=== PATIENT | male | born 1955 | race African-American/Black ===

== ENCOUNTER 2019-07-16 17:45 | Inpatient (IN) | payer OTHER ==
[~2019-07-16] VITALS: Ht 182.9 cm; Wt 54.9 kg
[2019-07-16 18:37] LABS: BASOPHILS % 1.2 % (0.0-2.0); EOSINOPHILS % 0.2 % (0.0-5.0); HEMATOCRIT. 43.5 % (42.0-52.0); HEMOGLOBIN. 13.6 g/dL (14.0-18.0); LYMPHOCYTES % 12.3 % (20.0-50.0); MEAN CORPUSCULAR HEMOGLOBIN 24.2 pg (28.0-32.0); MEAN CORPUSCULAR VOLUME 77.7 fL (80.0-94.0); MEAN PLATELET VOLUME 9.2 fl (7.4-10.4); MONOCYTES % 9.1 % (2.0-8.0); NEUTROPHILS % 77.2 % (40.0-76.0); PLATELET 201 x1000/uL (130-400); RED CELL DISTRIBUTION WIDTH 18.4 % (11.6-14.6)
[2019-07-16 18:40] LABS: CHLORIDE 92 mEq/L (98-107)
[2019-07-16 18:46] LABS: ETHANOL BLOOD < 10 mg/dL
[2019-07-16] MEDS ORDERED: METHYLPREDNISOLONE SOD SUCC 125 MG/2 ML VIAL IV ONE (19:15)
[2019-07-16] MEDS ORDERED: ALBUTEROL (0.083%) 2.5MG/3ML NEB HHN ONE (19:15)
[2019-07-16 20:58] LABS: BG BASE EXCESS 14.4 mmol/L (-2.0-2.0); BG CARBOXYHEMOGLOBIN 6.3 % (0.5-1.5); BG DEOXYHEMOGLOBIN 11.9 % (0.0-5.0); BG FRACTION INSPIRED OXYGEN 36; BG HCO3 ACT 46.2 mmol/L (22.0-26.0); BG METHEMOGLOBIN 0.3 % (0.0-1.5); BG OXYGEN SATURATION 87.3 % (92.0-98.5); BG OXYHEMOGLOBIN 81.5 % (94.0-97.0); BG PCO2 103.9 mmHg (35.0-45.0); BG PH 7.266 (7.350-7.450); BG PO2 54.6 mmHg (75.0-100.0); BG SAMPLE SITE RIGHT RADIAL; BG TOTAL HEMOGLOBIN 13.5 g/dL (12.0-18.0); BG VENT MODE NASAL CANNULA
[2019-07-16 23:39] LABS: BG BASE EXCESS 15.6 mmol/L (-2.0-2.0); BG CARBOXYHEMOGLOBIN 5.3 % (0.5-1.5); BG DEOXYHEMOGLOBIN 6.5 % (0.0-5.0); BG FRACTION INSPIRED OXYGEN 40; BG HCO3 ACT 47.4 mmol/L (22.0-26.0); BG METHEMOGLOBIN 0.1 % (0.0-1.5); BG OXYGEN SATURATION 93.1 % (92.0-98.5); BG OXYHEMOGLOBIN 88.1 % (94.0-97.0); BG PCO2 102.8 mmHg (35.0-45.0); BG PH 7.282 (7.350-7.450); BG PO2 67.5 mmHg (75.0-100.0); BG SAMPLE SITE RIGHT BRACHIAL; BG TOTAL HEMOGLOBIN 13.9 g/dL (12.0-18.0); BG VENT MODE NASAL CANNULA
[2019-07-17] VITALS (11 sets, daily range): BP systolic 81–116; BP diastolic 36–66
[2019-07-17] MEDS ORDERED: AZITHROMYCIN 500 MG in DEXT 5% WATER 250 ML IV ONE ×2
[2019-07-17] MEDS ORDERED: CEFTRIAXONE 1 G PREMIX 50 ML IV ONE
[2019-07-17] MEDS ORDERED: CLONIDINE 0.1MG TABLET PO PRN (00:30)
[2019-07-17] MEDS ORDERED: HYDROCODONE/ACETAMINOPHEN 10/325MG TABLET PO PRN (00:30)
[2019-07-17] MEDS ORDERED: MORPHINE SULFATE 2 MG/ML CPJ (NOT FOR IM USE) IV PRN (00:30)
[2019-07-17] MEDS ORDERED: ENOXAPARIN 40MG/0.4ML SYR SUBCUT SCH (00:30)
[2019-07-17] MEDS ORDERED: DOCUSATE SODIUM 100MG CAPSULE PO PRN (00:30)
[2019-07-17] MEDS ORDERED: ONDANSETRON HCL 4MG/2ML INJ IV PRN (00:30)
[2019-07-17] MEDS ORDERED: MAGNESIUM/ALUMINUM HYDROXIDE/SIMETHICONE 30ML UDC PO PRN (00:30)
[2019-07-17] MEDS ORDERED: DIPHENHYDRAMINE 50MG/ML VIAL IV PRN (00:30)
[2019-07-17] MEDS ORDERED: LORAZEPAM 2MG/ML CPJ IV PRN (00:30)
[2019-07-17] MEDS ORDERED: CEFTRIAXONE 1 G PREMIX 50 ML IV SCH ×2 (00:30→15:00)
[2019-07-17] MEDS ORDERED: AZITHROMYCIN 500 MG in DEXT 5% WATER 250 ML IV SCH (00:30)
[2019-07-17] MEDS ORDERED: ACETAMINOPHEN 325MG TABLET PO PRN (00:30)
[2019-07-17] MEDS ORDERED: GUAIFENESIN 200MG/10ML SUGAR FREE UDC PO PRN (00:30)
[2019-07-17] MEDS ORDERED: IPRATROPIUM/ALBUTEROL 0.5-3(2.5)MG/3ML NEB HHN PRN (00:30)
[2019-07-17] MEDS: SODIUM CHLORIDE 0.9% INJ 3ML FLUSH IVF SCH ×3 (07:24→22:28)
[2019-07-17 12:18] LABS: BG BASE EXCESS 18.6 mmol/L (-2.0-2.0); BG CARBOXYHEMOGLOBIN 2.3 % (0.5-1.5); BG DEOXYHEMOGLOBIN 3.9 % (0.0-5.0); BG FRACTION INSPIRED OXYGEN 40; BG HCO3 ACT 53.8 mmol/L (22.0-26.0); BG METHEMOGLOBIN 0.2 % (0.0-1.5); BG OXYHEMOGLOBIN 93.6 % (94.0-97.0); BG PCO2 145.5 mmHg (35.0-45.0); BG PH 7.186 (7.350-7.450); BG SAMPLE SITE RIGHT RADIAL; BG TOTAL HEMOGLOBIN 13.9 g/dL (12.0-18.0); BG VENT MODE NASAL CANNULA
[2019-07-17] MEDS ORDERED: ETOMIDATE 2MG/ML 10ML VIAL IV ONE ×2 (12:30)
[2019-07-17] MEDS ORDERED: PROPOFOL 10MG/ML 100ML 100 ML IV ONE (12:30)
[2019-07-17] MEDS ORDERED: SUCCINYLCHOLINE CHLORIDE 200MG/10ML IV ONE ×2 (12:30)
[2019-07-17 13:21] LABS: BG BASE EXCESS 15.3 mmol/L (-2.0-2.0); BG CARBOXYHEMOGLOBIN 2.2 % (0.5-1.5); BG DEOXYHEMOGLOBIN 0.4 % (0.0-5.0); BG FRACTION INSPIRED OXYGEN 75; BG HCO3 ACT 45.1 mmol/L (22.0-26.0); BG METHEMOGLOBIN 0.2 % (0.0-1.5); BG OXYGEN SATURATION 99.6 % (92.0-98.5); BG OXYHEMOGLOBIN 97.2 % (94.0-97.0); BG PCO2 82.6 mmHg (35.0-45.0); BG PH 7.355 (7.350-7.450); BG PO2 302.8 mmHg (75.0-100.0); BG SAMPLE SITE RIGHT BRACHIAL; BG TIDAL VOLUME(mL) 450 mL; BG VENT MODE VENT - A/C; BG VENT RATE 22 set
[2019-07-17] MEDS ORDERED: PROPOFOL 10MG/ML 100ML 100 ML IV PRN (14:30)
[2019-07-17] MEDS ORDERED: ALBUTEROL 6.7GM HFA INHALER ORI SCH (14:30)
[2019-07-17] MEDS ORDERED: METHYLPREDNISOLONE SOD SUCC 40 MG/ML VIAL IV SCH (14:30)
[2019-07-17] MEDS ORDERED: FENTANYL CITRATE/PF 1,000 MCG in SODIUM CHLORIDE 0.9% 80 ML IV PRN ×2 (14:45→16:15)
[2019-07-17] MEDS ORDERED: MIDAZOLAM HCL 100 MG in DEXT 5% WATER 80 ML IV PRN ×2 (15:45→16:15)
[2019-07-17] MEDS ORDERED: NOREPINEPHRINE 32 MG in DEXT 5% WATER 468 ML IV PRN ×2 (15:45→16:15)
[2019-07-17] MEDS ORDERED: MIDAZOLAM HCL 50 MG in DEXTROSE 5% WATER 40 ML IV ONE (20:45)
[2019-07-17] MEDS: METHYLPREDNISOLONE SOD SUCC 40 MG/ML VIAL IV SCH (22:41)
[2019-07-17] MEDS: AZITHROMYCIN 500MG in DEXTROSE 5% WATER 250ML IV SCH (23:21)
[2019-07-17] MEDS: CEFTRIAXONE 1 G PREMIX 50 ML IV SCH (23:21)
[2019-07-17] MEDS: ENOXAPARIN 40MG/0.4ML SYR SUBCUT SCH (23:24)
[2019-07-18] VITALS (99 sets, daily range): BP systolic 80–152; BP diastolic 35–96
[2019-07-18] MEDS ORDERED: AZITHROMYCIN 500MG in DEXTROSE 5% WATER 250ML IV SCH ×2
[2019-07-18] MEDS ORDERED: ALBUTEROL (0.083%) 2.5MG/3ML NEB HHN SCH
[2019-07-18] MEDS ORDERED: HYDRALAZINE 20MG/ML VIAL IV PRN
[2019-07-18] MEDS ORDERED: CEFTRIAXONE 1 G PREMIX 50 ML IV SCH
[2019-07-18] MEDS: NOREPINEPHRINE 32 MG in DEXT 5% WATER 468 ML IV PRN (03:00)
[2019-07-18] MEDS: METHYLPREDNISOLONE SOD SUCC 40 MG/ML VIAL IV SCH ×3 (05:22→21:19)
[2019-07-18] MEDS: MIDAZOLAM HCL 100 MG in DEXT 5% WATER 80 ML IV PRN ×2 (05:38→15:38)
[2019-07-18 05:40] LABS: HEMATOCRIT. 39.4 % (42.0-52.0); HEMOGLOBIN. 12.3 g/dL (14.0-18.0); MEAN CORPUSCULAR HEMOGLOBIN 24.1 pg (28.0-32.0); MEAN CORPUSCULAR VOLUME 76.9 fL (80.0-94.0); MEAN PLATELET VOLUME 9.4 fl (7.4-10.4); PLATELET 219 x1000/uL (130-400); RED BLOOD CELL COUNT 5.12 mill/uL (4.7-6.1); RED CELL DISTRIBUTION WIDTH 17.8 % (11.6-14.6)
[2019-07-18 05:45] LABS: CHLORIDE 92 mEq/L (98-107)
[2019-07-18] MEDS: SODIUM CHLORIDE 0.9% INJ 3ML FLUSH IVF SCH ×3 (06:00→21:20)
[2019-07-18 07:46] LABS: PLATELET ESTIMATE NORMAL
[2019-07-18 08:56] LABS: BG BASE EXCESS 11.9 mmol/L (-2.0-2.0); BG CARBOXYHEMOGLOBIN 1.3 % (0.5-1.5); BG DEOXYHEMOGLOBIN 2.6 % (0.0-5.0); BG FRACTION INSPIRED OXYGEN 40; BG HCO3 ACT 36.2 mmol/L (22.0-26.0); BG OXYGEN SATURATION 97.4 % (92.0-98.5); BG OXYHEMOGLOBIN 96.1 % (94.0-97.0); BG PCO2 45.4 mmHg (35.0-45.0); BG PO2 85.2 mmHg (75.0-100.0); BG SAMPLE SITE RIGHT BRACHIAL; BG TIDAL VOLUME(mL) 450 mL; BG VENT MODE VENT- PRVC; BG VENT RATE 18 set
[2019-07-18] MEDS: PANTOPRAZOLE SODIUM 40 MG/VIAL IV SCH (09:52)
[2019-07-18] MEDS ORDERED: IPRATROPIUM/ALBUTEROL 0.5-3(2.5)MG/3ML NEB HHN PRN (13:15)
[2019-07-18] MEDS: FENTANYL CITRATE/PF 1,000 MCG in SODIUM CHLORIDE 0.9% 80 ML IV PRN (13:48)
[2019-07-18 16:32] LABS: CLARITY URINE CLEAR (CLEAR); COLOR URINE YELLOW (YELLOW); KETONES URINE TRACE (NEGATIVE); LEUKOCYTE ESTERASE URINE NEGATIVE (NEGATIVE); NITRITE URINE NEGATIVE (NEGATIVE); OCCULT BLOOD URINE 1+ (NEGATIVE); PH URINE >=9.0 (4.5-8.0); PROTEIN URINE 1+ (NEGATIVE); SPECIFIC GRAVITY URINE 1.012 (1.005-1.030); UROBILINOGEN URINE 0.2 E.U./dL (0.2-1.0)
[2019-07-18 17:06] LABS: *AMPHETAMINES SCREEN URINE NEGATIVE (NEGATIVE); *BARBITURATES SCREEN URINE NEGATIVE (NEGATIVE); *BENZODIAZEPINES SCREEN URINE PRESUMTIVE POSITIVE (NEGATIVE); *COCAINE SCREEN URINE NEGATIVE (NEGATIVE); METHADONE URINE SCREEN NEGATIVE (NEGATIVE); OPIATES URINE SCREEN NEGATIVE (NEGATIVE)
[2019-07-18 17:07] LABS: CANNABINOID URINE SCREEN NEGATIVE (NEGATIVE); PHENCYCLIDINE URINE SCREEN NEGATIVE (NEGATIVE)
[2019-07-18] MEDS: IPRATROPIUM/ALBUTEROL 0.5-3(2.5)MG/3ML NEB HHN SCH (19:50)
[2019-07-18] MEDS: AZITHROMYCIN 500MG in DEXTROSE 5% WATER 250ML IV SCH (21:19)
[2019-07-18] MEDS: CEFTRIAXONE 1 G PREMIX 50 ML IV SCH (21:19)
[2019-07-18] MEDS: ENOXAPARIN 40MG/0.4ML SYR SUBCUT SCH (21:20)
[2019-07-19] VITALS (96 sets, daily range): BP systolic 74–185; BP diastolic 50–105
[2019-07-19] MEDS: IPRATROPIUM/ALBUTEROL 0.5-3(2.5)MG/3ML NEB HHN SCH ×6 (00:10→21:08)
[2019-07-19] MEDS: MIDAZOLAM HCL 100 MG in DEXT 5% WATER 80 ML IV PRN ×3 (02:31→23:53)
[2019-07-19] MEDS: SODIUM CHLORIDE 0.9% INJ 3ML FLUSH IVF SCH ×3 (06:00→22:59)
[2019-07-19 06:29] LABS: BASOPHILS % 0.3 % (0.0-2.0); HEMATOCRIT. 41.9 % (42.0-52.0); HEMOGLOBIN. 13.2 g/dL (14.0-18.0); LYMPHOCYTES % 7.1 % (20.0-50.0); MEAN CORPUSCULAR HEMOGLOBIN 23.8 pg (28.0-32.0); MEAN CORPUSCULAR VOLUME 75.6 fL (80.0-94.0); MEAN PLATELET VOLUME 9.4 fl (7.4-10.4); MONOCYTES % 5.1 % (2.0-8.0); NEUTROPHILS % 87.5 % (40.0-76.0); PLATELET 243 x1000/uL (130-400); RED BLOOD CELL COUNT 5.54 mill/uL (4.7-6.1); RED CELL DISTRIBUTION WIDTH 17.5 % (11.6-14.6)
[2019-07-19 06:32] LABS: INR 1.1; PARTIAL THROMBOPLASTIN TIME 42.4 sec (23.4-31.0); PROTHROMBIN TIME 11.5 sec (9.6-11.0)
[2019-07-19 06:33] LABS: CHLORIDE 94 mEq/L (98-107)
[2019-07-19 06:37] LABS: PHOSPHORUS 2.8 mg/dL (2.5-4.9)
[2019-07-19] MEDS: METHYLPREDNISOLONE SOD SUCC 40 MG/ML VIAL IV SCH ×3 (07:45→23:03)
[2019-07-19 08:44] LABS: BG BASE EXCESS 10.6 mmol/L (-2.0-2.0); BG CARBOXYHEMOGLOBIN 1.3 % (0.5-1.5); BG DEOXYHEMOGLOBIN 8.7 % (0.0-5.0); BG HCO3 ACT 37.9 mmol/L (22.0-26.0); BG METHEMOGLOBIN 0.2 % (0.0-1.5); BG OXYGEN SATURATION 91.2 % (92.0-98.5); BG OXYHEMOGLOBIN 89.8 % (94.0-97.0); BG PCO2 62.5 mmHg (35.0-45.0); BG PH 7.401 (7.350-7.450); BG PO2 61.8 mmHg (75.0-100.0); BG SAMPLE SITE RIGHT RADIAL; BG TIDAL VOLUME(mL) 450 mL; BG TOTAL HEMOGLOBIN 13.9 g/dL (12.0-18.0); BG VENT MODE VENT - A/C; BG VENT RATE 14 set
[2019-07-19] MEDS: FENTANYL CITRATE/PF 1,000 MCG in SODIUM CHLORIDE 0.9% 80 ML IV PRN ×2 (08:51→17:23)
[2019-07-19] MEDS: PANTOPRAZOLE SODIUM 40 MG/VIAL IV SCH (09:39)
[2019-07-19] MEDS: ZINC SULFATE 220 MG ( 50 ) CAPSULE PO SCH (09:39)
[2019-07-19] MEDS: ASCORBIC ACID 500 MG TABLET PO SCH (09:40)
[2019-07-19] MEDS: FOLIC ACID 1MG TABLET PO SCH (09:40)
[2019-07-19] MEDS: THIAMINE HCL 100MG TABLET PO SCH (09:40)
[2019-07-19] MEDS: MIDODRINE HCL 5MG TABLET PO SCH ×2 (13:45→17:55)
[2019-07-19] MEDS: ACETYLCYSTEINE 100MG/ML 10% VIAL 4ML INH SCH ×2 (15:49→22:00)
[2019-07-19] MEDS: CEFTRIAXONE 1 G PREMIX 50 ML IV SCH (20:18)
[2019-07-19] MEDS: AZITHROMYCIN 500MG in DEXTROSE 5% WATER 250ML IV SCH (20:18)
[2019-07-19] MEDS: ENOXAPARIN 40MG/0.4ML SYR SUBCUT SCH (23:05)
[2019-07-20] VITALS (97 sets, daily range): BP systolic 66–157; BP diastolic 16–97
[2019-07-20] MEDS: IPRATROPIUM/ALBUTEROL 0.5-3(2.5)MG/3ML NEB HHN SCH ×4 (00:08→21:13)
[2019-07-20] MEDS: NOREPINEPHRINE 32 MG in DEXT 5% WATER 468 ML IV PRN (00:22)
[2019-07-20] MEDS: FENTANYL CITRATE/PF 1,000 MCG in SODIUM CHLORIDE 0.9% 80 ML IV PRN ×3 (03:15→13:52)
[2019-07-20 05:54] LABS: HEMATOCRIT. 41.2 % (42.0-52.0); MEAN CORPUSCULAR HEMOGLOBIN 24.1 pg (28.0-32.0); MEAN PLATELET VOLUME 9.1 fl (7.4-10.4); PLATELET 232 x1000/uL (130-400); RED BLOOD CELL COUNT 5.42 mill/uL (4.7-6.1); RED CELL DISTRIBUTION WIDTH 17.9 % (11.6-14.6)
[2019-07-20 06:04] LABS: CHLORIDE 95 mEq/L (98-107)
[2019-07-20] MEDS: SODIUM CHLORIDE 0.9% INJ 3ML FLUSH IVF SCH ×3 (06:08→20:50)
[2019-07-20] MEDS: METHYLPREDNISOLONE SOD SUCC 40 MG/ML VIAL IV SCH ×3 (06:08→20:49)
[2019-07-20 08:20] LABS: BG BASE EXCESS 11.1 mmol/L (-2.0-2.0); BG CARBOXYHEMOGLOBIN 0.9 % (0.5-1.5); BG DEOXYHEMOGLOBIN 7.6 % (0.0-5.0); BG HCO3 ACT 40.3 mmol/L (22.0-26.0); BG METHEMOGLOBIN 0.2 % (0.0-1.5); BG OXYGEN SATURATION 92.3 % (92.0-98.5); BG OXYHEMOGLOBIN 91.3 % (94.0-97.0); BG PCO2 76.4 mmHg (35.0-45.0); BG PO2 70.3 mmHg (75.0-100.0); BG SAMPLE SITE RIGHT RADIAL; BG TIDAL VOLUME(mL) 450 mL; BG TOTAL HEMOGLOBIN 14.2 g/dL (12.0-18.0); BG VENT MODE VENT - A/C; BG VENT RATE 14 set
[2019-07-20] MEDS: ACETYLCYSTEINE 100MG/ML 10% VIAL 4ML INH SCH (08:52)
[2019-07-20 08:58] LABS: PLATELET ESTIMATE NORMAL
[2019-07-20] MEDS: THIAMINE HCL 100MG TABLET PO SCH (09:00)
[2019-07-20] MEDS: ASCORBIC ACID 500 MG TABLET PO SCH (09:48)
[2019-07-20] MEDS: FOLIC ACID 1MG TABLET PO SCH (09:48)
[2019-07-20] MEDS: MIDODRINE HCL 5MG TABLET PO SCH ×3 (09:48→17:54)
[2019-07-20] MEDS: ZINC SULFATE 220 MG ( 50 ) CAPSULE PO SCH (09:48)
[2019-07-20] MEDS: MIDAZOLAM HCL 100 MG in DEXT 5% WATER 80 ML IV PRN ×2 (11:27→21:11)
[2019-07-20] MEDS: ENOXAPARIN 40MG/0.4ML SYR SUBCUT SCH (20:50)
[2019-07-20] MEDS: CEFTRIAXONE 1 G PREMIX 50 ML IV SCH (21:29)
[2019-07-20] MEDS: AZITHROMYCIN 500MG in DEXTROSE 5% WATER 250ML IV SCH (21:29)
[2019-07-21] VITALS (90 sets, daily range): BP systolic 86–167; BP diastolic 49–99
[2019-07-21] MEDS: FENTANYL CITRATE/PF 1,000 MCG in SODIUM CHLORIDE 0.9% 80 ML IV PRN ×2 (00:07→09:40)
[2019-07-21] MEDS: ACETYLCYSTEINE 100MG/ML 10% VIAL 4ML INH SCH ×2 (00:47→12:30)
[2019-07-21] MEDS: IPRATROPIUM/ALBUTEROL 0.5-3(2.5)MG/3ML NEB HHN SCH ×6 (00:48→21:12)
[2019-07-21] MEDS: SODIUM CHLORIDE 0.9% INJ 3ML FLUSH IVF SCH ×3 (05:22→21:05)
[2019-07-21] MEDS: METHYLPREDNISOLONE SOD SUCC 40 MG/ML VIAL IV SCH ×2 (05:24→16:02)
[2019-07-21] MEDS: MIDAZOLAM HCL 100 MG in DEXT 5% WATER 80 ML IV PRN ×2 (05:45→18:27)
[2019-07-21 05:55] LABS: HEMATOCRIT. 43.2 % (42.0-52.0); HEMOGLOBIN. 13.4 g/dL (14.0-18.0); MEAN CORPUSCULAR HEMOGLOBIN 23.8 pg (28.0-32.0); MEAN CORPUSCULAR VOLUME 76.8 fL (80.0-94.0); PLATELET 208 x1000/uL (130-400); RED BLOOD CELL COUNT 5.62 mill/uL (4.7-6.1); RED CELL DISTRIBUTION WIDTH 18.3 % (11.6-14.6)
[2019-07-21 06:05] LABS: CHLORIDE 94 mEq/L (98-107)
[2019-07-21 07:15] LABS: PLATELET ESTIMATE NORMAL
[2019-07-21] MEDS: ASCORBIC ACID 500 MG TABLET PO SCH (08:24)
[2019-07-21] MEDS: ZINC SULFATE 220 MG ( 50 ) CAPSULE PO SCH (08:24)
[2019-07-21] MEDS: FOLIC ACID 1MG TABLET PO SCH (08:24)
[2019-07-21] MEDS: THIAMINE HCL 100MG TABLET PO SCH (08:24)
[2019-07-21] MEDS: MIDODRINE HCL 5MG TABLET PO SCH ×3 (08:24→16:03)
[2019-07-21 09:12] LABS: BG BASE EXCESS 6.5 mmol/L (-2.0-2.0); BG CARBOXYHEMOGLOBIN 0.7 % (0.5-1.5); BG DEOXYHEMOGLOBIN 1.3 % (0.0-5.0); BG FRACTION INSPIRED OXYGEN 65; BG HCO3 ACT 33.3 mmol/L (22.0-26.0); BG METHEMOGLOBIN 0.4 % (0.0-1.5); BG OXYGEN SATURATION 98.7 % (92.0-98.5); BG OXYHEMOGLOBIN 97.6 % (94.0-97.0); BG PH 7.385 (7.350-7.450); BG PO2 133.8 mmHg (75.0-100.0); BG SAMPLE SITE RIGHT RADIAL; BG TIDAL VOLUME(mL) 500 mL; BG TOTAL HEMOGLOBIN 13.9 g/dL (12.0-18.0); BG VENT MODE VENT- PRVC; BG VENT RATE 14 set
[2019-07-21] MEDS ORDERED: FENTANYL CITRATE/PF 500 MCG in SODIUM CHLORIDE 0.9% 40 ML IV PRN (10:30)
[2019-07-21] MEDS ORDERED: MIDAZOLAM HCL 50 MG in DEXTROSE 5% WATER 40 ML IV PRN (10:30)
[2019-07-21] MEDS ORDERED: MIDAZOLAM HCL 100 MG in DEXT 5% WATER 100 ML IV PRN (10:45)
[2019-07-21] MEDS: ENOXAPARIN 40MG/0.4ML SYR SUBCUT SCH (21:06)
[2019-07-21] MEDS: FENTANYL 1,000 MCG in SODIUM CHLORIDE 0.9% 100 ML IV PRN (21:09)
[2019-07-21] MEDS: NOREPINEPHRINE 32 MG in DEXT 5% WATER 468 ML IV PRN (21:17)
[2019-07-22] VITALS (92 sets, daily range): BP systolic 77–121; BP diastolic 48–92
[2019-07-22] MEDS: IPRATROPIUM/ALBUTEROL 0.5-3(2.5)MG/3ML NEB HHN SCH ×4 (03:03→20:10)
[2019-07-22] MEDS: ACETYLCYSTEINE 100MG/ML 10% VIAL 4ML INH SCH ×2 (03:03→13:07)
[2019-07-22] MEDS: MIDAZOLAM HCL 100 MG in DEXT 5% WATER 80 ML IV PRN (05:43)
[2019-07-22] MEDS: FENTANYL 1,000 MCG in SODIUM CHLORIDE 0.9% 100 ML IV PRN (05:45)
[2019-07-22] MEDS: SODIUM CHLORIDE 0.9% INJ 3ML FLUSH IVF SCH ×3 (06:00→22:56)
[2019-07-22 06:45] LABS: BASOPHILS % 0.1 % (0.0-2.0); HEMATOCRIT. 38.2 % (42.0-52.0); HEMOGLOBIN. 12.3 g/dL (14.0-18.0); LYMPHOCYTES % 7.5 % (20.0-50.0); MEAN CORPUSCULAR HEMOGLOBIN 24.3 pg (28.0-32.0); MEAN CORPUSCULAR VOLUME 75.5 fL (80.0-94.0); MEAN PLATELET VOLUME 9.3 fl (7.4-10.4); MONOCYTES % 6.5 % (2.0-8.0); NEUTROPHILS % 85.9 % (40.0-76.0); PLATELET 222 x1000/uL (130-400); RED BLOOD CELL COUNT 5.06 mill/uL (4.7-6.1); RED CELL DISTRIBUTION WIDTH 16.8 % (11.6-14.6)
[2019-07-22 06:58] LABS: CHLORIDE 95 mEq/L (98-107)
[2019-07-22 07:49] LABS: BG BASE EXCESS 9.7 mmol/L (-2.0-2.0); BG CARBOXYHEMOGLOBIN 0.4 % (0.5-1.5); BG DEOXYHEMOGLOBIN 3.5 % (0.0-5.0); BG FRACTION INSPIRED OXYGEN 40; BG HCO3 ACT 37.4 mmol/L (22.0-26.0); BG METHEMOGLOBIN 0.3 % (0.0-1.5); BG OXYGEN SATURATION 96.5 % (92.0-98.5); BG OXYHEMOGLOBIN 95.8 % (94.0-97.0); BG PCO2 65.9 mmHg (35.0-45.0); BG PH 7.372 (7.350-7.450); BG PO2 87.8 mmHg (75.0-100.0); BG SAMPLE SITE RIGHT BRACHIAL; BG TIDAL VOLUME(mL) 500 mL; BG VENT MODE VENT - A/C; BG VENT RATE 14 set
[2019-07-22] MEDS: ZINC SULFATE 220 MG ( 50 ) CAPSULE PO SCH (08:35)
[2019-07-22] MEDS: ASCORBIC ACID 500 MG TABLET PO SCH (08:35)
[2019-07-22] MEDS: MIDODRINE HCL 5MG TABLET PO SCH ×3 (08:35→17:49)
[2019-07-22] MEDS: FOLIC ACID 1MG TABLET PO SCH (08:35)
[2019-07-22] MEDS: THIAMINE HCL 100MG TABLET PO SCH (08:35)
[2019-07-22] MEDS: METHYLPREDNISOLONE SOD SUCC 40 MG/ML VIAL IV SCH ×2 (09:08→17:49)
[2019-07-22 13:33] LABS: BG BASE EXCESS 3.2 mmol/L (-2.0-2.0); BG CARBOXYHEMOGLOBIN 0.9 % (0.5-1.5); BG DEOXYHEMOGLOBIN 5.5 % (0.0-5.0); BG FRACTION INSPIRED OXYGEN 40; BG HCO3 ACT 29.5 mmol/L (22.0-26.0); BG OXYGEN SATURATION 94.5 % (92.0-98.5); BG OXYHEMOGLOBIN 93.6 % (94.0-97.0); BG PCO2 52.4 mmHg (35.0-45.0); BG PH 7.369 (7.350-7.450); BG PO2 76.7 mmHg (75.0-100.0); BG PRESSURE SUPPORT 8; BG SAMPLE SITE RIGHT RADIAL; BG TOTAL HEMOGLOBIN 13.7 g/dL (12.0-18.0); BG VENT MODE VENT - CPAP
[2019-07-22] MEDS: PHENYTOIN SODIUM 100MG/2ML VIAL IV SCH ×2 (14:44→21:06)
[2019-07-22] MEDS ORDERED: MORPHINE SULFATE 2 MG/ML CPJ (NOT FOR IM USE) IV PRN (14:45)
[2019-07-22 16:54] LABS: BG BASE EXCESS 9.6 mmol/L (-2.0-2.0); BG CARBOXYHEMOGLOBIN 0.8 % (0.5-1.5); BG DEOXYHEMOGLOBIN 10.6 % (0.0-5.0); BG FRACTION INSPIRED OXYGEN 40; BG HCO3 ACT 36.5 mmol/L (22.0-26.0); BG METHEMOGLOBIN 0.1 % (0.0-1.5); BG OXYGEN SATURATION 89.3 % (92.0-98.5); BG OXYHEMOGLOBIN 88.5 % (94.0-97.0); BG PCO2 59.1 mmHg (35.0-45.0); BG PH 7.408 (7.350-7.450); BG PO2 58.4 mmHg (75.0-100.0); BG SAMPLE SITE RIGHT BRACHIAL; BG TOTAL HEMOGLOBIN 13.6 g/dL (12.0-18.0); BG VENT MODE MASK - AEROSOL
[2019-07-22] MEDS ORDERED: PHENYLEPHRINE 20 MG in DEXT 5% WATER 248 ML IV PRN (17:45)
[2019-07-22] MEDS ORDERED: PHENYLEPHRINE 40 MG in DEXT 5% WATER 246 ML IV PRN (17:45)
[2019-07-22] MEDS: ENOXAPARIN 40MG/0.4ML SYR SUBCUT SCH (21:06)
[2019-07-23] VITALS (34 sets, daily range): BP systolic 93–150; BP diastolic 53–95
[2019-07-23] MEDS: SODIUM CHLORIDE 0.9% INJ 3ML FLUSH IVF SCH ×3 (05:23→20:35)
[2019-07-23] MEDS: PHENYTOIN SODIUM 100MG/2ML VIAL IV SCH ×2 (05:23→13:01)
[2019-07-23 06:01] LABS: CHLORIDE 95 mEq/L (98-107); HEMATOCRIT. 37.2 % (42.0-52.0); HEMOGLOBIN. 12.1 g/dL (14.0-18.0); MEAN CORPUSCULAR HEMOGLOBIN 24.5 pg (28.0-32.0); MEAN CORPUSCULAR VOLUME 75.4 fL (80.0-94.0); MEAN PLATELET VOLUME 9.5 fl (7.4-10.4); PLATELET 193 x1000/uL (130-400); RED BLOOD CELL COUNT 4.93 mill/uL (4.7-6.1); RED CELL DISTRIBUTION WIDTH 17.1 % (11.6-14.6)
[2019-07-23] MEDS: FOLIC ACID 1MG TABLET PO SCH (08:13)
[2019-07-23] MEDS: THIAMINE HCL 100MG TABLET PO SCH (08:13)
[2019-07-23] MEDS: MIDODRINE HCL 5MG TABLET PO SCH ×3 (08:13→18:14)
[2019-07-23] MEDS: ZINC SULFATE 220 MG ( 50 ) CAPSULE PO SCH (08:13)
[2019-07-23] MEDS: METHYLPREDNISOLONE SOD SUCC 40 MG/ML VIAL IV SCH (08:13)
[2019-07-23] MEDS: ASCORBIC ACID 500 MG TABLET PO SCH (08:13)
[2019-07-23 08:28] LABS: PLATELET ESTIMATE NORMAL
[2019-07-23] MEDS: ACETYLCYSTEINE 100MG/ML 10% VIAL 4ML INH SCH ×2 (09:02→16:51)
[2019-07-23] MEDS: IPRATROPIUM/ALBUTEROL 0.5-3(2.5)MG/3ML NEB HHN SCH ×4 (09:02→21:00)
[2019-07-24] MEDS ORDERED: PREDNISONE 20MG TABLET PO SCH (09:00)
== END 2019-07-23 21:20 | disposition short-term general hospital (02) | DRG 870 ==
LOC: ER 17:45 → MICUSO 22:06 → EDBEDREQSVC 22:24 → EDBEDREQTM 22:24 → EDBEDREQ 22:24 → ENRESERV 07-17 19:59 → CVICU 07-20 07:50
PROVIDERS: ADMIT Internal Medicine; ATTEND Internal Medicine
PROC: 0BH17EZ Insertion of Endotracheal Airway into Trachea, Via Natural or Artificial Opening (ICD-10-PCS; principal; 2019-07-17)
PROC: 5A1955Z Respiratory Ventilation, Greater than 96 Consecutive Hours (ICD-10-PCS; 2019-07-17)
PROC: 0BH17EZ Insertion of Endotracheal Airway into Trachea, Via Natural or Artificial Opening (ICD-10-PCS; 2019-07-17)
PROC: 5A1935Z Respiratory Ventilation, Less than 24 Consecutive Hours (ICD-10-PCS; 2019-07-17)
PROC: 06HY33Z Insertion of Infusion Device into Lower Vein, Percutaneous Approach (ICD-10-PCS; 2019-07-17)
DX: A41.9 Sepsis, unspecified organism (principal); J96.22 Acute and chronic respiratory failure with hypercapnia; J18.9 Pneumonia, unspecified organism; R65.21 Severe sepsis with septic shock; J44.1 Chronic obstructive pulmonary disease with (acute) exacerbation; E44.1 Mild protein-calorie malnutrition; E87.2 Acidosis; J44.0 Chronic obstructive pulmonary disease with (acute) lower respiratory infection; Z68.1 Body mass index [BMI] 19.9 or less, adult; G40.909 Epilepsy, unspecified, not intractable, without status epilepticus; F17.210 Nicotine dependence, cigarettes, uncomplicated; Z92.21 Personal history of antineoplastic chemotherapy; Z92.3 Personal history of irradiation; Z03.818 Encounter for observation for suspected exposure to other biological agents ruled out; Z79.1 Long term (current) use of non-steroidal anti-inflammatories (NSAID); Z79.2 Long term (current) use of antibiotics; Z79.51 Long term (current) use of inhaled steroids; Z79.899 Other long term (current) drug therapy; Z85.118 Personal history of other malignant neoplasm of bronchus and lung
CPT/HCPCS: 36415; 36600; 71045; 80048; 80053; 80305; 80320; 81003; 82375; 82805; 82962; 83735; 83880; 84100; 84484; 85025; 87070; 92610; 93005; 94002; 99285; 99291; C9113; J0330; J0456; J0696; J1165; J1650; J2060; J2250; J2704; J2920; J2930; J3010; J3490; J7050; J7060; J7608; U0003; C9803-CS; G0480